=== PATIENT | female | born 1950 | race Two or more races ===

== ENCOUNTER 2023-04-29 17:02 | Emergency (ER) | payer OTHER ==
[~2023-04-29] VITALS: Ht 157.5 cm; Wt 63.5 kg
[2023-04-29] MEDS ORDERED: LOSARTAN-HCTZ1 EACH PO (17:32)
[2023-04-29 18:35] LABS: URINE APPEARANCE Clear; URINE BILIRRUBIN Negative (NEGATIVE); URINE BLOOD Trace; URINE COLOR Yellow; URINE GLUCOSE Negative (NEGATIVE); URINE LEUKOCYTE Large; URINE NITRATE Negative; URINE PROTEIN Negative (NEGATIVE); URINE UROBILINOGEN 0.2 E.U./dl
[2023-04-29 18:39] LABS: URINE BACTERIA 32.7 uL (0.0-1933); URINE EPITHELIAL CELLS 20.4 uL (0.0-38.8); URINE RBC 6.7 uL (0.0-20.8); URINE WBC 193.8 uL (0.0-23.2)
== END 2023-04-29 19:46 | disposition home or self-care (01) ==
LOC: ER 17:03
PROVIDERS: General Practice
DX: N39.0 Urinary tract infection, site not specified (principal); I10 Essential (primary) hypertension; Z88.8 Allergy status to other drugs, medicaments and biological substances